=== PATIENT | female | born 1930 | race Caucasian/White ===

== ENCOUNTER → 2017-06-20 | Outpatient (CLI) | payer MEDICARE, OTHER | LOC: RAD 15:40 | DX: M79.645 Pain in left finger(s) (principal); M19.042 Primary osteoarthritis, left hand | CPT/HCPCS: 73140 ==

== ENCOUNTER → 2021-09-27 | Outpatient (CLI) | payer MEDICARE, OTHER ==
[~2021-09-27] MED LIST: AMARYL1 MG PO; ASPIRIN 325MG325 MG PO; BUMETANIDE2 MG PO; JANUVIA100 MG PO; K-DUR TAB 10 M10 MEQ PO; MAG PO; NORVASC2.5 MG PO; PREDNISONE 50 M50 MG PO; SYMBICORT 160-1 INHA INH; TYLENOL 325MG325 MG PO; ULORIC 40 MG TA40 MG PO; VENTOLIN HFA 66.7 GM INH; VIBRAMYCIN100 MG PO; VITB12 PO; VITD PO; ZOCOR20 MG PO
== END ==
LOC: EMI 10:57
DX: G51.39 Clonic hemifacial spasm, unspecified (principal); R94.02 Abnormal brain scan
CPT/HCPCS: 70551

== ENCOUNTER → 2021-10-11 | Outpatient (CLI) | payer MEDICARE, OTHER | LOC: RAD 16:43 | DX: M54.50 Low back pain, unspecified (principal); M47.816 Spondylosis without myelopathy or radiculopathy, lumbar region | CPT/HCPCS: 72100 ==

== ENCOUNTER → 2021-11-01 | Outpatient (CLI) | payer MEDICARE, OTHER | LOC: KOH-I 10-23 10:30 | DX: R29.898 Other symptoms and signs involving the musculoskeletal system (principal); M51.36 Other intervertebral disc degeneration, lumbar region; M48.07 Spinal stenosis, lumbosacral region; M25.78 Osteophyte, vertebrae | CPT/HCPCS: 72148 ==

== ENCOUNTER → 2022-02-19 | Outpatient (CLI) | payer MEDICARE, OTHER | LOC: RAD 17:14 | DX: R06.2 Wheezing (principal) | CPT/HCPCS: 71046 ==

== ENCOUNTER 2022-02-28 08:36 | Emergency (ER) | payer MEDICARE, OTHER ==
[2022-02-28 09:24] LABS: HEMOGLOBIN 12.6 gm/dl (12.3-15.3); RED BLOOD COUNT 3.76 M/UL (4.00-5.10); WHITE BLOOD COUNT 12.4 K/UL (4.5-11.0)
== END 2022-02-28 13:12 | disposition home or self-care (01) ==
LOC: ER1 08:36
PROVIDERS: Physician Assistant
DX: S81.012A Laceration without foreign body, left knee, initial encounter (principal); S40.012A Contusion of left shoulder, initial encounter; S00.83XA Contusion of other part of head, initial encounter; E11.9 Type 2 diabetes mellitus without complications; I48.91 Unspecified atrial fibrillation; J44.9 Chronic obstructive pulmonary disease, unspecified; Z88.2 Allergy status to sulfonamides; Z88.5 Allergy status to narcotic agent; Z88.6 Allergy status to analgesic agent; Z88.8 Allergy status to other drugs, medicaments and biological substances; W23.0XXA Caught, crushed, jammed, or pinched between moving objects, initial encounter
CPT/HCPCS: 12002; 70450; 71045; 72125; 72170; 73030; 73060; 73130; 73562; 80053; 82550; 82553; 82962; 84484; 85025; 90471; 90715; 93005; 99284

== ENCOUNTER → 2022-03-06 | Outpatient (CLI) | payer MEDICARE, OTHER | LOC: EXRD 11:04 | DX: J44.9 Chronic obstructive pulmonary disease, unspecified (principal) | CPT/HCPCS: 71046 ==

== ENCOUNTER 2022-04-25 16:19 | Emergency (ER) | payer MEDICARE, OTHER ==
[2022-04-25 17:19] LABS: HEMOGLOBIN 12.7 gm/dl (12.3-15.3); RED BLOOD COUNT 3.88 M/UL (4.00-5.10); WHITE BLOOD COUNT 11.3 K/UL (4.5-11.0)
== END 2022-04-25 21:40 | disposition home or self-care (01) ==
LOC: ER1 16:19
PROVIDERS: Nurse Practitioner
DX: E11.65 Type 2 diabetes mellitus with hyperglycemia (principal); I10 Essential (primary) hypertension; J44.9 Chronic obstructive pulmonary disease, unspecified
CPT/HCPCS: 71045; 80053; 82009; 82962; 85025; 96374; 99285

== ENCOUNTER 2022-07-04 21:28 | Emergency (ER) | payer MEDICARE, OTHER ==
[2022-07-04 22:08] LABS: HEMOGLOBIN 12.6 gm/dl (12.3-15.3); RED BLOOD COUNT 3.84 M/UL (4.00-5.10); WHITE BLOOD COUNT 10.3 K/UL (4.5-11.0)
[2022-07-04 22:37] LABS: BUN/CREATININE RATIO 20 (0-10)
== END 2022-07-05 03:15 | disposition home or self-care (01) ==
LOC: ER1 21:28
PROVIDERS: Physician Assistant
DX: R07.89 Other chest pain (principal); E11.65 Type 2 diabetes mellitus with hyperglycemia; I48.91 Unspecified atrial fibrillation; I11.9 Hypertensive heart disease without heart failure; E78.5 Hyperlipidemia, unspecified; E11.9 Type 2 diabetes mellitus without complications; Z88.6 Allergy status to analgesic agent; Z88.2 Allergy status to sulfonamides; Z88.8 Allergy status to other drugs, medicaments and biological substances; Z88.5 Allergy status to narcotic agent
CPT/HCPCS: 71045; 80053; 82009; 82550; 82553; 82800; 82962; 84484; 85025; 85379; 85610; 85730; 93005; 99285